=== PATIENT | female | born 1975 | race Native Hawaiian/Other Pacific Islander ===

== ENCOUNTER 2019-10-27 13:51 | Outpatient (CLI) | payer OTHER | END 2019-10-27 22:46 | disposition home or self-care (01) | LOC: RESP 13:51 | DX: R06.02 Shortness of breath (principal); R00.0 Tachycardia, unspecified; I42.0 Dilated cardiomyopathy | CPT/HCPCS: 93225; 93306 ==

== ENCOUNTER 2019-11-02 13:28 | Outpatient (CLI) | payer OTHER | END 2019-11-02 19:23 | disposition home or self-care (01) | LOC: LAB 13:28 | DX: R53.83 Other fatigue (principal); R53.81 Other malaise; F41.9 Anxiety disorder, unspecified | CPT/HCPCS: 82670; 83001; 84403 ==

== ENCOUNTER 2020-03-13 13:11 | Outpatient (CLI) | payer OTHER ==
[2020-03-13 14:08] LABS: PLATELET COUNT 211 K/uL (152-353)
[2020-03-13 14:12] LABS: POTASSIUM 4.6 mmol/L (3.6-5.2)
== END 2020-03-13 21:26 | disposition home or self-care (01) ==
LOC: LAB 13:11
PROVIDERS: Nurse Practitioner Family
DX: I50.9 Heart failure, unspecified (principal); F41.9 Anxiety disorder, unspecified; R53.83 Other fatigue; R53.81 Other malaise; I10 Essential (primary) hypertension; Z00.00 Encounter for general adult medical examination without abnormal findings; Z79.899 Other long term (current) drug therapy
CPT/HCPCS: 80053; 80061; 83036; 84439; 84443; 84481; 85027

== ENCOUNTER 2020-04-18 13:25 | Outpatient (CLI) | payer OTHER | END 2020-04-19 00:02 | disposition home or self-care (01) | LOC: MAMMO 13:25 | DX: N63.0 Unspecified lump in unspecified breast (principal); R92.8 Other abnormal and inconclusive findings on diagnostic imaging of breast ==

== ENCOUNTER 2020-05-15 08:42 | Outpatient (CLI) | payer OTHER | END 2020-05-15 19:27 | disposition home or self-care (01) | LOC: US 08:42 | DX: R19.07 Generalized intra-abdominal and pelvic swelling, mass and lump (principal) ==

== ENCOUNTER 2020-05-25 08:51 | Outpatient (CLI) | payer OTHER | END 2020-05-25 18:59 | disposition home or self-care (01) | LOC: CT 08:51 | DX: R19.00 Intra-abdominal and pelvic swelling, mass and lump, unspecified site (principal) | CPT/HCPCS: Q9963 ==

== ENCOUNTER 2020-08-24 11:37 | Outpatient (CLI) | payer OTHER | END 2020-08-24 19:02 | disposition home or self-care (01) | LOC: LAB 11:37 | PROVIDERS: ATTEND Nurse Practitioner Family | DX: R94.6 Abnormal results of thyroid function studies (principal) | CPT/HCPCS: 84443 ==

== ENCOUNTER 2021-01-21 14:35 | Outpatient (CLI) | payer OTHER ==
[2021-01-21 15:20] LABS: POTASSIUM 4.5 mmol/L (3.6-5.2)
[2021-01-21 15:21] LABS: PLATELET COUNT 190 K/uL (152-353)
== END 2021-01-21 21:51 | disposition home or self-care (01) ==
LOC: LAB 14:35
PROVIDERS: ATTEND Nurse Practitioner Family
DX: R53.83 Other fatigue (principal); F41.9 Anxiety disorder, unspecified; I50.9 Heart failure, unspecified; R53.81 Other malaise; Z79.899 Other long term (current) drug therapy; I10 Essential (primary) hypertension; Z79.890 Hormone replacement therapy; R94.6 Abnormal results of thyroid function studies
CPT/HCPCS: 80053; 80061; 82306; 82670; 83001; 83036; 84403; 84439; 84443; 85027

== ENCOUNTER 2021-04-16 15:26 | Outpatient (CLI) | payer OTHER ==
[2021-04-16 15:52] LABS: PLATELET COUNT 213 K/uL (152-353)
[2021-04-16 16:14] LABS: POTASSIUM 4.9 mmol/L (3.6-5.2)
== END 2021-04-16 20:55 | disposition home or self-care (01) ==
LOC: LAB 15:26
PROVIDERS: ATTEND Nurse Practitioner Family
DX: R53.83 Other fatigue (principal); F41.9 Anxiety disorder, unspecified; R53.81 Other malaise; Z79.899 Other long term (current) drug therapy; I10 Essential (primary) hypertension; R94.6 Abnormal results of thyroid function studies; R63.5 Abnormal weight gain; Z79.890 Hormone replacement therapy
CPT/HCPCS: 80053; 80061; 82306; 83036; 84439; 84443; 85027; 86769

== ENCOUNTER 2021-08-29 11:01 | Outpatient (CLI) | payer OTHER | END 2021-08-29 19:10 | disposition home or self-care (01) | LOC: RAD 11:01 | PROVIDERS: ATTEND Nurse Practitioner Family | DX: U07.1 COVID-19 (principal) ==

== ENCOUNTER 2022-04-15 13:42 | Outpatient (CLI) | payer OTHER ==
[2022-04-15 14:10] LABS: PLATELET COUNT 199 K/uL (152-353)
[2022-04-15 14:33] LABS: POTASSIUM 4.8 mmol/L (3.6-5.2)
== END 2022-04-15 19:09 | disposition home or self-care (01) ==
LOC: LAB 13:42
PROVIDERS: ATTEND Nurse Practitioner Family
DX: I11.0 Hypertensive heart disease with heart failure (principal); I50.9 Heart failure, unspecified; F41.9 Anxiety disorder, unspecified; R53.83 Other fatigue; R53.81 Other malaise; R94.6 Abnormal results of thyroid function studies; Z79.899 Other long term (current) drug therapy; Z79.890 Hormone replacement therapy; G25.81 Restless legs syndrome; L40.9 Psoriasis, unspecified; R00.2 Palpitations
CPT/HCPCS: 80053; 80061; 82306; 82607; 83036; 84439; 84443; 85027

== ENCOUNTER 2022-04-16 13:56 | Outpatient (CLI) | payer OTHER | END 2022-04-16 19:00 | disposition home or self-care (01) | LOC: LAB 13:56 | PROVIDERS: ATTEND Nurse Practitioner Family | DX: R53.83 Other fatigue (principal); Z79.890 Hormone replacement therapy; Z79.899 Other long term (current) drug therapy | CPT/HCPCS: 82670; 83001; 84403 ==

== ENCOUNTER 2022-05-06 08:22 | Outpatient (CLI) | payer OTHER | END 2022-05-06 20:18 | disposition home or self-care (01) | LOC: CT 08:22 | PROVIDERS: ATTEND Nurse Practitioner Family | DX: M19.90 Unspecified osteoarthritis, unspecified site (principal); M54.2 Cervicalgia ==

== ENCOUNTER 2022-07-24 14:49 | Outpatient (CLI) | payer OTHER ==
[2022-07-24 15:25] LABS: POTASSIUM 4.4 mmol/L (3.6-5.2)
== END 2022-07-24 19:46 | disposition home or self-care (01) ==
LOC: LAB 14:49
PROVIDERS: ATTEND Nurse Practitioner Family
DX: R94.6 Abnormal results of thyroid function studies (principal)
CPT/HCPCS: 80053; 84439; 84443

== ENCOUNTER 2022-10-24 09:00 | Outpatient (CLI) | payer OTHER | END 2022-10-24 19:29 | disposition home or self-care (01) | LOC: MAMMO 09:00 | PROVIDERS: ATTEND Nurse Practitioner Family | DX: Z12.31 Encounter for screening mammogram for malignant neoplasm of breast (principal) ==

== ENCOUNTER 2022-12-04 13:33 | Outpatient (CLI) | payer OTHER ==
[2022-12-04 14:06] LABS: PLATELET COUNT 196 K/uL (152-353)
[2022-12-04 14:14] LABS: POTASSIUM 4.9 mmol/L (3.6-5.2)
== END 2022-12-04 17:00 | disposition home or self-care (01) ==
LOC: LAB 13:33
PROVIDERS: ATTEND Nurse Practitioner Family
DX: I11.0 Hypertensive heart disease with heart failure (principal); I50.9 Heart failure, unspecified; R53.83 Other fatigue; R53.81 Other malaise; R94.6 Abnormal results of thyroid function studies; F41.9 Anxiety disorder, unspecified; Z79.899 Other long term (current) drug therapy; G47.00 Insomnia, unspecified
CPT/HCPCS: 80053; 80061; 83036; 83880; 84439; 84443; 85027

== ENCOUNTER 2023-02-23 13:54 | Outpatient (CLI) | payer OTHER ==
[2023-02-23 14:21] LABS: POTASSIUM 4.4 mmol/L (3.6-5.2)
[2023-02-23 14:22] LABS: PLATELET COUNT 197 K/uL (152-353)
== END 2023-02-23 20:50 | disposition home or self-care (01) ==
LOC: LAB 13:54
PROVIDERS: ATTEND Nurse Practitioner Family
DX: I11.0 Hypertensive heart disease with heart failure (principal); I50.9 Heart failure, unspecified; R94.6 Abnormal results of thyroid function studies; R53.83 Other fatigue; R53.81 Other malaise; G47.00 Insomnia, unspecified; F41.8 Other specified anxiety disorders; Z79.899 Other long term (current) drug therapy; Z79.890 Hormone replacement therapy; M19.90 Unspecified osteoarthritis, unspecified site; E78.49 Other hyperlipidemia; R00.2 Palpitations; M50.30 Other cervical disc degeneration, unspecified cervical region; L40.9 Psoriasis, unspecified
CPT/HCPCS: 80053; 80061; 82306; 82670; 83036; 84403; 84439; 84443; 85027